=== PATIENT | male | born 1945 | race Caucasian/White ===

== ENCOUNTER 2018-02-27 11:47 | Emergency (ER) | payer MEDICARE ==
[2018-02-27] MEDS ORDERED: Ketorolac Tromethamine 30 MG/ML VIAL ONE (12:23)
[2018-02-27 12:27] LABS: #Basophils 0.1 thou/uL (0.0-0.2); #Eosinphils 0.5 thou/uL (0.0-0.7); #Lymphocytes 0.9 thou/uL (1.20-3.40); #Monocytes 0.5 thou/uL (0.11-0.59); %Basophils 0.8 % (0.0-1.0); %Eosinophils 5.4 % (0.0-10.0); %Lymphocytes 9.8 % (21.0-51.0); %Monocytes 5.4 % (0.0-10.0); %Neutrophils 78.7 % (42.0-75.0); Hemoglobin 12.4 g/dL (14.0-18.0); Mean Corpuscular HGB CONC 32.6 g/dL (32.0-36.0); Mean Corpuscular Hemoglobin 29.3 pg (27.0-31.0); Mean Corpuscular Volume 89.7 fl (80.0-94.0); Mean Platelet Volume 7.7 fL (7.4-10.4); Platelet Count 194 thou/uL (130-400); RBC Distribution Width 11.9 % (11.5-14.5); Red Blood Cell (RBC) Count 4.24 mill/uL (4.70-6.10); White Blood Cell (WBC) Count 8.9 thou/uL (4.8-10.8)
[2018-02-27 12:42] LABS: ALT (SGPT) 14 U/L (8-55); AST (SGOT) 13 U/L (5-34); Albumin 3.3 g/dL (3.4-4.8); Alkaline Phosphatase 87 U/L (40-150); Anion Gap 15 mmol/L (10-20); BUN (Urea Nitrogen) 9 mg/dL (8.4-25.7); Bilirubin, Total 0.4 mg/dL (0.2-1.2); Calc. Creatinine Clearance 0 mL/min (70-130); Calcium 8.3 mg/dL (7.8-10.44); Carbon Dioxide 23 mmol/L (23-31); Chloride 105 mmol/L (98-107); Estimated GFR-MDRD 90; Globulin 2.6 g/dL (2.4-3.5); Glucose 107 mg/dL (80-115); Potassium 3.7 mmol/L (3.5-5.1); Protein, Total 5.9 g/dL (5.8-8.1); Sodium 139 mmol/L (136-145)
[2018-02-27] MEDS ORDERED: Sodium Chloride 0.9% 1,000 ML BAG ONE (14:03)
--- NOTE | 2018-02-27 14:52 | RAD ---
THREE VIEWS RIGHT SHOULDER: DATE: 02/27/18. HISTORY: Right shoulder joint pain. FINDINGS: There is right acromioclavicular joint osteoarthritis present. There is mild irregularity of the dis earle right clavicle which may be related to a remote right clavicle fracture. No acute fracture or di slocation is seen. A calcified granuloma overlies the right mid lung zone. Degenerative changes are seen on the limited visualized thoracic spine. IMPRESSION: 1. Right acromioclavicular osteoarthritis. 2. Probable remote fracture involving the distal 1/3 right clavicle. 3. No acute osseous abnormality of the right shoulder. POS: [facility]
--- NOTE | 2018-02-27 15:04 | CT ---
ABDOMEN CT WITHOUT CONTRAST PELVIC CT WITHOUT CONTRAST: HISTORY: Pain. COMPARISON: None. TECHNIQUE: An abdomen and pelvic CT is performed without IV or oral contrast using the renal stone protocol. Co katharina reformatted images are submitted for interpretation. FINDINGS: ABDOMEN CT: Chronic change of the lung bases. Normal heart size. No significant pericardial fluid. Visualized aorta has a normal caliber. No periaortic fat stranding. There are nonspecific, nonenlarged paraaor tic and aortocaval lymph nodes. Gallbladder is surgically absent. Limited evaluation of the solid organs by the lack of IV contrast. Grossly, the liver, spleen, pancr eas, and adrenal glands are unremarkable. No gastrohepatic, retrocrural, or periportal lymphadenopathy. No mesenteric mass or free air. No evidence of free fluid. Bilaterally, no hydronephrosis, nephrolithiasis, or perinephric fat stranding. Bilateral ureters hav e a normal caliber. No hydroureter, periureteral fat stranding, or ureterolithiasis. Limited evaluation of the alimentary canal due to lack of oral contrast. Fat attenuation of the duod enum may represent ingested material versus possible duodenal intraluminal lipoma. No evidence of sm all bowel obstruction. Ileocecal junction is normal. Appendix is not appreciated. Nevertheless, no obvious inflammation at the level of the cecal apex. The right hemicolon is unremarkable. The desc ending colon is also unremarkable. There is circumferential mucosal thickening involving the proxima l sigmoid colon. There is extensive mucosal thickening with pericolonic fat stranding and pericoloni c lymphadenopathy involving the mid to distal sigmoid colon. The possibility of a neoplasm is raised . Enlarged lymph node measures 1.2 x 0.9 cm. Additional lymph nodes are noted. PELVIC CT: No mass, lymphadenopathy, free air, or free fluid. The urinary bladder is unremarkable. No lytic or blastic lesions within the osseous structures. IMPRESSION: 1. Distal sigmoid colon neoplasm until proven otherwise. There is evidence of adjacent lymphadenopa thy suggesting metastases. 2. Mucosal thickening, circumferential involving the proximal sigmoid colon. POS: [facility]
[2018-02-27 15:55] LABS: Bilirubin Small (Negative); Blood, Urine Negative (Negative); Clarity Cloudy (Clear); Glucose, Urine (Dipstick) 100 mg/dL (Negative); Leukocyte Small (Negative); Nitrite Positive (Negative); Protein, Urine (Dipstick) 30 mg/dL (Neg-Trace); Specific Gravity, Urine 1.015 (1.005-1.030)
[2018-02-27 16:09] LABS: Bacteria/HPF 1+ HPF (None Seen); RBC/HPF 0-3 HPF (0-3)
[2018-02-27 16:10] LABS: Crystals/HPF 4+ AMORPH URATES HPF (Negative); Other Casts/LPF 7-10 MIXED CASTS LPF (0-3 Hyaline)
== END 2018-02-27 16:26 | disposition home or self-care (01) ==
LOC: MADERS 11:47
DX: N39.0 Urinary tract infection, site not specified (principal); K63.9 Disease of intestine, unspecified; M25.511 Pain in right shoulder; F17.210 Nicotine dependence, cigarettes, uncomplicated; F17.220 Nicotine dependence, chewing tobacco, uncomplicated
CPT/HCPCS: 74176; 80053; 81003; 81015; 85025; 87086; 96361; 96374; J1885; J7050

== ENCOUNTER 2020-02-25 21:31 | Emergency (ER) | payer MEDICARE, OTHER ==
[~2020-02-25 21:31] MED LIST: Sodium Chloride 0.9% 1,000 ML BAG ONE; Sodium Chloride 0.9% 100 ML BAG ONE
--- NOTE | 2020-02-25 22:46 | RAD ---
Chest one view HISTORY: Dyspnea. COMPARISON: 04/16/2018. FINDINGS: Cardiac silhouette is magnified by projection. Pulmonary vasculature is unremarkable. Mediastinum is midline with a right subclavian central venous Port-A-Cath. Calcified granulomata are consistent with healed granulomatous disease. No lobar consolidation or peter dence of pneumothorax. pvc monitor leads overlie the chest. IMPRESSION : No active cardiopulmonary abnormalities are demonstrated.
[2020-02-25 22:59] LABS: #Basophils 0.1 thou/uL (0.0-0.2); #Eosinphils 0.9 thou/uL (0.0-0.7); #Lymphocytes 0.6 thou/uL (1.20-3.40); #Monocytes 0.1 thou/uL (0.11-0.59); #Neutrophils 10.4 thou/uL (1.40-6.50); %Basophils 0.5 % (0.0-1.0); %Eosinophils 7.2 % (0.0-10.0); %Monocytes 0.7 % (0.0-10.0); %Neutrophils 86.6 % (42.0-75.0); Anisocytosis MODERATE=16-30 cells (100X) (0-5/hpf); Elliptocytes SLIGHT = 2-5 cells (100X) (0-1/hpf); Hemoglobin 8.9 g/dL (14.0-18.0); MDiff Complete? YES; Macrocytosis SLIGHT = 6-15 cells (100X) (0-5/hpf); Mean Corpuscular HGB CONC 30.6 g/dL (32.0-36.0); Mean Corpuscular Hemoglobin 31.1 pg (27.0-31.0); Mean Corpuscular Volume 101.4 fL (78.0-98.0); Mean Platelet Volume 10.2 fL (7.4-10.4); Platelet Count 134 thou/uL (130-400); RBC Distribution Width 19.2 % (11.5-14.5); Red Blood Cell (RBC) Count 2.87 mill/uL (4.70-6.10)
[2020-02-25 23:04] LABS: ALT (SGPT) 103 U/L (8-55); AST (SGOT) 205 U/L (5-34); Albumin 3.1 g/dL (3.4-4.8); Alkaline Phosphatase 825 U/L (40-110); Anion Gap 18 mmol/L (10-20); BUN (Urea Nitrogen) 28 mg/dL (8.4-25.7); Bilirubin, Total 5.7 mg/dL (0.2-1.2); Calc. Creatinine Clearance 0 mL/min (70-130); Carbon Dioxide 19 mmol/L (23-31); Chloride 102 mmol/L (98-107); Estimated GFR-MDRD 89; Globulin 4.8 g/dL (2.4-3.5); Glucose 116 mg/dL (83-110); Potassium 4.9 mmol/L (3.5-5.1); Protein, Total 7.9 g/dL (5.8-8.1); Sodium 134 mmol/L (136-145)
[2020-02-25] MEDS ORDERED: Cefepime 2 GM VIAL ONE (23:27)
--- NOTE | 2020-02-26 00:02 | CT ---
CT arteriogram chest with IV contrast and 3-D imaging HISTORY: Dyspnea. Metastatic disease. COMPARISON: CT abdomen 02/14/2020. FINDINGS: There is good contrast opacification of the pulmonary arteries and thoracic aorta with norm al branching of the great vessels at the aortic arch. Multiple nodules are present throughout each lung, consistent with known metastatic disease. Subcarin al lymph node measures up to 3.1 cm AP diameter. No pneumothorax. Within the partially visualized upper abdomen, numerous low density lesions are again seen throughout the liver and left adrenal gland. IMPRESSION : No CT evidence of pulmonary embolus. Extensive metastatic disease of the chest and upper abdomen.
[2020-02-26] MEDS ORDERED: Vancomycin 1.5 GRAM/300 ML BAG 1.5 GM/300 ML BAG ONE (00:23)
[2020-02-26 01:40] LABS: Lactic Acid 3.1 mmol/L (0.5-2.2)
== END 2020-02-26 02:30 | disposition short-term general hospital (02) ==
LOC: MADERS 21:31
DX: A41.9 Sepsis, unspecified organism (principal); R06.00 Dyspnea, unspecified; F17.210 Nicotine dependence, cigarettes, uncomplicated; Z79.899 Other long term (current) drug therapy
CPT/HCPCS: 36415; 71045; 71275; 80053; 83605; 83880; 84484; 85025; 85379; 87040; 87635; 93005; 96365; 96366; 96367; J0692; J3370; J3490; J7050; U0003